=== PATIENT | female | born 1990 | race American Indian/Alaskan Native ===

== ENCOUNTER 2018-10-15 09:15 | Inpatient (IN) | payer MEDICAID ==
[2018-10-15] MEDS ORDERED: BRETHINE SUB-Q PRN (12:12)
[2018-10-15] MEDS ORDERED: MINERAL OIL PO PRN (12:12)
[2018-10-15] MEDS ORDERED: BRETHINE IVP PRN (12:12)
[2018-10-15] MEDS ORDERED: CERVIDIL VG ONE (12:12)
[2018-10-15] MEDS ORDERED: XYLOCAINE 2% INFILTRATI ONE (12:12)
[2018-10-15 12:47] LABS: Hematocrit 32.7 % (30.3-42.9); Hemoglobin 10.9 gm/dl (10.1-14.3); Mean Corpuscular HGB Conc 33 % (30-34); Mean Corpuscular Volume 80 fl (79-97); Platelet Count 244 K/mm3 (140-440); Red Blood Count 4.11 M/mm3 (3.65-5.03)
[2018-10-15] MEDS ORDERED: PITOCin/NS 30 UNIT/500ML 30 UNITS/500 ML BAG IV SCH (13:00)
[2018-10-15] MEDS ORDERED: PITOCin/NS 20 UNIT/1000ML DRIP 20 UNITS/1,000 ML BAG IV SCH (13:00)
--- NOTE | 2018-10-15 14:19 | History and Physical Report ---
History of Present Illness Date of examination: 10/15/18 Date of admission: 10/15/2018 Chief complaint: IOL secondary to CHTN History of present illness: 27 yo, @ 38.0 wks gestation. Initiated care with Thalia Flores at 11.1 wks gestation. Care has been co-managed by [facility]. has been complicated by Morbid obesity, CHTN, and BV/yeast. Reports good FM. Denies LOF or VB. Labs: O+, antibody negative; Rubella immune; VDRL non-reactive; HBsAG negative; HIV negative; Varicella immune; GC/Chlamydia/Trich negative; early 1 hr Gtt- 152, early 3 hr- normal; Hgb A1c-5.4; 24 hr urine- 122 (05/03/18); 28 wk 1 hr Gtt- 141, followed by normal 3 hr; GBS negative. Past History Past Medical History: hypertension, other (Fibroids; Vit D deficiency) Past Surgical History: other (Hernia repair; Cyst removal) PROJECT OFFICER History: other (+HRHPV) Family/Genetic History: hypertension Social history: , full code. denies: smoking, alcohol abuse, prescription drug abuse, IV drug use - Obstetrical History Expected Date of Delivery: 10/29/18 Actual Gestation: 38 Week(s) 0 Day(s) : 1 Para: 0 Hx # Term Pregnancies: 0 Number of Pregnancies: 0 Spontaneous Abortions: 0 Induced : 0 Number of Living Children: 0 Medications and Allergies Allergies Allergy/AdvReac Type Severity Reaction Status Date / Time No Known Allergies Allergy Unverified 10/15/18 10:38 Home Medications Medication Instructions Recorded Confirmed Last Taken Type Aspirin EC 81 mg PO DAILY 10/15/18 10/15/18 10/14/18 22:00 History Labetalol [Labetalol 100mg TAB] 100 mg PO BID 10/15/18 10/15/18 10/14/18 10:00 History No.137/Iron/Folic Acd 1 tab PO DAILY 10/15/18 10/15/18 10/14/18 11:00 History [[facility] Vitamins Tablet] Active Meds: Active Medications Ephedrine Sulfate (Ephedrine Sulfate) 10 mg IV Q2M PRN PRN Reason: Hypotension Fentanyl (Sublimaze) 100 mcg IV Q2H PRN PRN Reason: Labor Pain Oxytocin/Sodium Chloride (Pitocin/Ns 20 Unit/1000ml Drip) 20 units in 1,000 mls @ 125 mls/hr IV DIRECT MANJU Oxytocin/Sodium Chloride (Pitocin/Ns 30 Unit/500ml) 30 units in 500 mls @ 1 mls/hr IV TITR MANJU; Protocol Lactated Ringer's (Lactated Ringers) 1,000 mls @ 125 mls/hr IV DIRECT MANJU Mineral Oil (Mineral Oil) 30 ml PO QHS PRN PRN Reason: Constipation Terbutaline Sulfate (Brethine) 0.25 mg SUB-Q ONCE PRN PRN Reason: Hyperstimulation/Hypertonicity Terbutaline Sulfate (Brethine) 0.25 mg IVP ONCE PRN PRN Reason: Hyperstimulation/Hypertonicity Review of Systems All systems: negative - Vital Signs Vital signs: Vital Signs Pulse BP 92 H 136/80 10/15/18 09:53 10/15/18 09:53 Temp Pulse Resp BP Pulse Ox 97.9 F 84 18 110/57 10/15/18 11:54 10/15/18 11:54 10/15/18 11:54 10/15/18 11:54 - Physical Exam Breasts: Positive: deferred Cardiovascular: Regular rate Lungs: Positive: Normal air movement Abdomen: Positive: other (gravid) Genitourinary (Female): Positive: normal external genitalia Vagina: Positive: normal moisture Uterus: Positive: other (S=D) Extremities: Positive: normal Deep Tendon Reflex Grade: Normal +2 - Obstetrical FHR: category 1 Uterine Contraction Monitor Mode: External Cervical Dilatation: 0 Cervical Effacement Percentage: 50 station: -3 Uterine Contraction Pattern: Irregular Uterine Tone Measurement Phase: Resting Uterine Contraction Intensity: Mild Results Result Diagrams: 10/15/18 11:15 Abnormal lab results 10/15/18 Range/Units 11:15 WBC 12.8 H (4.5-11.0) K/mm3 MCH 27 L (28-32) pg All other labs normal. Assessment and Plan - Patient Problems (1) 38 weeks gestation of Current Visit: Yes Status: Acute (2) Encounter for induction of labor Current Visit: Yes Status: Acute Plan to address problem: Admit to L & D Cervidil x 12 hrs as tolerated Pain medications as desired Anticipate (3) Chronic hypertension Current Visit: Yes Status: Acute Plan to address problem: Monitor B/P q h Notify provider for B/P > 160/110 (4) BMI 36.0-36.9,adult Current Visit: Yes Status: Acute
[2018-10-16] MEDS: SUBLIMAZE IV PRN ×2 (04:07→21:38)
[2018-10-16] MEDS ORDERED: CERVIDIL VG PRN (08:30)
[2018-10-16] MEDS ORDERED: CYTOTEC VG PRN (10:35)
--- NOTE | 2018-10-16 14:47 | Progress Note ---
Assessment and Plan A: IUP @ 38 1/7 Weeks Category I Tracing CHTN P: Cytotec 25mcg intravaginally q 4 hours Subjective - Subjective Date of service: 10/16/18 Patient reports: movement normal Objective - Vital Signs Vital Signs: Vital Signs - 12hr 10/16/18 10/16/18 10/16/18 02:59 09:05 09:06 Temperature 98.1 F Pulse Rate 93 H 84 Respiratory 18 Rate Blood Pressure 110/65 122/71 10/16/18 10/16/18 13:03 13:05 Temperature 97.8 F Pulse Rate 92 H Respiratory 18 Rate Blood Pressure 141/78 - Exam Breasts: normal Cardiovascular: Regular rate Lungs: Clear to auscultation, Normal air movement Abdomen: Present: normal appearance, soft, normal bowel sounds FHR: category 1 Uterine Contraction Monitor Mode: External Cervical Dilatation: 0.5 Uterine Contraction Pattern: Irregular Uterine Tone Measurement Phase: Resting Uterine Contraction Intensity: Mild - Labs Labs: Abnormal Labs 10/15/18 11:15 WBC 12.8 H MCH 27 L Laboratory Results - last 24 hr 10/15/18 11:15 RPR Nonreactive
[2018-10-16] MEDS: LACTATED RINGERS 1,000 ML IV SCH (16:25)
--- NOTE | 2018-10-16 19:04 | Progress Note ---
Assessment and Plan A: IUP @ 38 1/7 Weeks Category I Tracing CHTN P: Cook's Cervical Ripening Balloon Placed Start Low-Dose Pitocin Subjective - Subjective Date of service: 10/16/18 Patient reports: movement normal Objective - Vital Signs Vital Signs: Vital Signs - 12hr 10/16/18 10/16/18 10/16/18 09:05 09:06 13:03 Temperature 98.1 F 97.8 F Pulse Rate 84 Respiratory 18 18 Rate Blood Pressure 122/71 O2 Sat by Pulse Oximetry 10/16/18 10/16/18 10/16/18 13:05 16:24 18:38 Temperature Pulse Rate 92 H 76 93 H Respiratory Rate Blood Pressure 141/78 112/73 O2 Sat by Pulse 99 Oximetry 10/16/18 10/16/18 10/16/18 18:43 18:48 18:53 Temperature Pulse Rate 93 H 99 H 94 H Respiratory Rate Blood Pressure O2 Sat by Pulse 98 99 99 Oximetry 10/16/18 10/16/18 18:58 18:59 Temperature Pulse Rate 85 87 Respiratory Rate Blood Pressure O2 Sat by Pulse 99 75 L Oximetry - Exam Breasts: normal Cardiovascular: Regular rate Lungs: Normal air movement Abdomen: Present: normal appearance, soft Uterus: Present: normal, firm, fundal height at umbilicus FHR: category 1 Uterine Contraction Monitor Mode: External Cervical Dilatation: 1 Cervical Effacement Percentage: 40 station: 3 Uterine Contraction Pattern: Irregular Uterine Tone Measurement Phase: Resting Uterine Contraction Intensity: Mild Extremities: normal - Labs Labs: Abnormal Labs 10/15/18 11:15 WBC 12.8 H MCH 27 L Laboratory Results - last 24 hr 10/15/18 11:15 RPR Nonreactive
[2018-10-17] MEDS ORDERED: NARCAN 2 MG/2 ML IV PRN (02:31)
--- NOTE | 2018-10-17 02:34 | Anesthesia Consultation ---
Anesthesia Consult and Med Hx Date of service: 10/17/18 - Airway Anesthetic Teeth Evaluation: Good ROM Head & Neck: Adequate Mental/Hyoid Distance: Adequate Mallampati Class: Class II Intubation Access Assessment: Probably Good - Pulmonary Exam CTA: Yes - Cardiac Exam Cardiac Exam: RRR - Pre-Operative Health Status ASA Pre-Surgery Classification: ASA2 Proposed Anesthetic Plan: Epidural - Pulmonary Hx Smoking: No Hx Asthma: No Hx Respiratory Symptoms: No SOB: No COPD: No Home Oxygen Therapy: No Hx Pneumonia: No Hx Sleep Apnea: No - Cardiovascular System Hx Hypertension: Yes (during this ) Hx Coronary Artery Disease: No Hx Heart Attack/AMI: No Hx Angina: No Hx Percutaneous Transluminal Coronary Angioplasty (PTCA): No Hx Cardia Arrhythmia: No Hx Pacemaker: No Hx Internal Defibrillator: No Hx Valvular Heart Disease: No Hx Heart Murmur: No Hx Peripheral Vascular Disease: No - Central Nervous System Hx Neuromuscular Disorder: No Hx Seizures: No CVA: No Hx Back Pain: No Hx Psychiatric Problems: No - Gastrointestinal Hx Ulcer: No Hx Gastroesophageal Reflux Disease: Yes - Endocrine Hx Renal Disease: No Hx End Stage Renal Disease: No Hx Cirrhosis: No Hx Liver Disease: No Hx Insulin Dependent Diabetes: No Hx Non-Insulin Dependent Diabetes: No Hx Thyroid Disease: No Hx Hypothyroidism: No Hx Hyperthyroidism: No - Hematic Hx Anemia: No Hx Sickle Cell Disease: No - Other Systems Hx Alcohol Use: Yes (none during ; social drinking) Hx Substance Use: No Hx Cancer: No Hx Obesity: No
[2018-10-17] MEDS: fentaNYL-BUPIV 2 MCG/ML-0.125% 200 MCG/100 ML BAG EPIDURAL SCH ×2 (03:29→12:25)
--- NOTE | 2018-10-17 09:44 | Progress Note ---
Assessment and Plan A: IUP @ 38 1/7 Weeks Category I Tracing TORITOTAlejandro Bennett's catheter remains in place Pitocin on 4mu Irregular contractions P: Continue Routine labor orders Increase Pitocin per protocol Anticipate Subjective - Subjective Date of service: 10/17/18 Principal diagnosis: IOL Patient reports: movement normal, contractions (occasional ), no loss of fluid, no vaginal bleeding Objective - Vital Signs Vital Signs: Vital Signs - 12hr 10/16/18 10/16/18 10/16/18 22:09 22:37 23:07 Temperature Pulse Rate 85 80 88 Respiratory Rate Blood Pressure 136/86 114/55 124/77 O2 Sat by Pulse Oximetry 10/16/18 10/16/18 10/16/18 23:25 23:30 23:35 Temperature Pulse Rate 90 92 H 94 H Respiratory Rate Blood Pressure O2 Sat by Pulse 99 97 98 Oximetry 10/16/18 10/16/18 10/16/18 23:38 23:40 23:45 Temperature Pulse Rate 90 90 94 H Respiratory Rate Blood Pressure 124/73 O2 Sat by Pulse 98 98 Oximetry 10/16/18 10/17/18 10/17/18 23:50 00:05 00:10 Temperature Pulse Rate 90 100 H 89 Respiratory Rate Blood Pressure O2 Sat by Pulse 98 98 97 Oximetry 10/17/18 10/17/18 10/17/18 00:15 00:20 00:25 Temperature Pulse Rate 88 94 H 102 H Respiratory Rate Blood Pressure O2 Sat by Pulse 97 97 97 Oximetry 10/17/18 10/17/18 10/17/18 00:30 00:35 00:39 Temperature Pulse Rate 92 H 96 H 95 H Respiratory Rate Blood Pressure O2 Sat by Pulse 97 98 92 Oximetry 10/17/18 10/17/18 10/17/18 00:41 00:46 00:51 Temperature Pulse Rate 87 82 83 Respiratory Rate Blood Pressure O2 Sat by Pulse 99 97 97 Oximetry 10/17/18 10/17/18 10/17/18 00:56 01:01 01:06 Temperature Pulse Rate 87 84 91 H Respiratory Rate Blood Pressure O2 Sat by Pulse 98 98 97 Oximetry 10/17/18 10/17/18 10/17/18 01:07 02:54 02:56 Temperature Pulse Rate 91 H 111 H 100 H Respiratory Rate Blood Pressure O2 Sat by Pulse 93 100 86 Oximetry 10/17/18 10/17/18 10/17/18 02:59 03:04 03:07 Temperature Pulse Rate 98 H 103 H 96 H Respiratory Rate Blood Pressure O2 Sat by Pulse 100 100 0 L Oximetry 10/17/18 10/17/18 10/17/18 03:09 03:10 03:14 Temperature Pulse Rate 107 H 88 Respiratory Rate Blood Pressure 122/74 O2 Sat by Pulse 73 L 99 Oximetry 10/17/18 10/17/18 10/17/18 03:21 03:26 03:31 Temperature Pulse Rate 91 H 92 H 65 Respiratory Rate Blood Pressure O2 Sat by Pulse 91 89 89 Oximetry 10/17/18 10/17/18 10/17/18 03:36 03:38 03:41 Temperature Pulse Rate 119 H 112 H 118 H Respiratory Rate Blood Pressure 119/73 O2 Sat by Pulse 99 99 Oximetry 10/17/18 10/17/18 10/17/18 03:46 03:48 03:51 Temperature Pulse Rate 121 H 98 H Respiratory 20 Rate Blood Pressure O2 Sat by Pulse 99 100 Oximetry 10/17/18 10/17/18 10/17/18 03:56 04:01 04:06 Temperature Pulse Rate 106 H 115 H 115 H Respiratory Rate Blood Pressure O2 Sat by Pulse 98 98 99 Oximetry 10/17/18 10/17/18 10/17/18 04:08 04:11 04:16 Temperature Pulse Rate 111 H 85 118 H Respiratory Rate Blood Pressure 134/70 O2 Sat by Pulse 96 98 Oximetry 10/17/18 10/17/18 10/17/18 04:21 04:23 04:26 Temperature Pulse Rate 114 H 84 114 H Respiratory Rate Blood Pressure O2 Sat by Pulse 99 93 99 Oximetry 10/17/18 10/17/18 10/17/18 04:31 04:36 04:39 Temperature Pulse Rate 115 H 98 H 99 H Respiratory Rate Blood Pressure 113/69 O2 Sat by Pulse 98 100 Oximetry 10/17/18 10/17/18 10/17/18 04:41 04:46 04:51 Temperature Pulse Rate 86 83 87 Respiratory Rate Blood Pressure O2 Sat by Pulse 99 98 99 Oximetry 10/17/18 10/17/18 10/17/18 04:56 05:01 05:06 Temperature Pulse Rate 88 95 H 82 Respiratory Rate Blood Pressure O2 Sat by Pulse 98 97 97 Oximetry 10/17/18 10/17/18 10/17/18 05:08 05:11 05:16 Temperature Pulse Rate 85 80 93 H Respiratory Rate Blood Pressure 101/56 O2 Sat by Pulse 97 97 Oximetry 10/17/18 10/17/18 10/17/18 05:21 05:26 05:31 Temperature Pulse Rate 85 81 85 Respiratory Rate Blood Pressure O2 Sat by Pulse 96 97 97 Oximetry 10/17/18 10/17/18 10/17/18 05:36 05:38 05:41 Temperature Pulse Rate 88 89 93 H Respiratory Rate Blood Pressure 98/57 O2 Sat by Pulse 97 98 Oximetry 10/17/18 10/17/18 10/17/18 05:46 05:51 05:56 Temperature Pulse Rate 80 102 H 98 H Respiratory Rate Blood Pressure O2 Sat by Pulse 98 98 98 Oximetry 10/17/18 10/17/18 10/17/18 06:01 06:06 06:11 Temperature Pulse Rate 113 H 90 92 H Respiratory Rate Blood Pressure O2 Sat by Pulse 100 98 98 Oximetry 10/17/18 10/17/18 10/17/18 06:16 06:21 06:26 Temperature Pulse Rate 85 98 H 91 H Respiratory Rate Blood Pressure O2 Sat by Pulse 99 98 99 Oximetry 10/17/18 10/17/18 10/17/18 06:31 06:36 06:41 Temperature Pulse Rate 94 H 97 H 95 H Respiratory Rate Blood Pressure O2 Sat by Pulse 98 98 98 Oximetry 10/17/18 10/17/18 10/17/18 06:46 06:51 06:56 Temperature Pulse Rate 100 H 102 H 102 H Respiratory Rate Blood Pressure O2 Sat by Pulse 98 98 97 Oximetry 10/17/18 10/17/18 10/17/18 07:01 07:06 07:08 Temperature Pulse Rate 111 H 110 H 104 H Respiratory Rate Blood Pressure O2 Sat by Pulse 98 98 94 Oximetry 10/17/18 10/17/18 10/17/18 07:11 07:15 07:16 Temperature 97.8 F Pulse Rate 108 H 107 H Respiratory Rate Blood Pressure O2 Sat by Pulse 97 97 Oximetry 10/17/18 10/17/18 10/17/18 07:21 07:23 07:26 Temperature Pulse Rate 116 H 112 H 108 H Respiratory Rate Blood Pressure 125/79 O2 Sat by Pulse 98 99 Oximetry 10/17/18 10/17/18 10/17/18 07:31 07:36 07:37 Temperature Pulse Rate 103 H 106 H 103 H Respiratory Rate Blood Pressure 143/74 O2 Sat by Pulse 100 100 Oximetry 10/17/18 10/17/18 10/17/18 07:41 07:46 07:51 Temperature Pulse Rate 105 H 105 H 103 H Respiratory Rate Blood Pressure O2 Sat by Pulse 98 98 98 Oximetry 10/17/18 10/17/18 10/17/18 07:56 08:01 08:06 Temperature Pulse Rate 103 H 125 H 105 H Respiratory Rate Blood Pressure O2 Sat by Pulse 98 98 100 Oximetry 10/17/18 10/17/18 10/17/18 08:08 08:11 08:16 Temperature Pulse Rate 116 H 106 H 122 H Respiratory Rate Blood Pressure 112/76 O2 Sat by Pulse 99 98 Oximetry 10/17/18 10/17/18 10/17/18 08:21 08:26 08:31 Temperature Pulse Rate 112 H 106 H 115 H Respiratory Rate Blood Pressure O2 Sat by Pulse 99 99 99 Oximetry 10/17/18 10/17/18 10/17/18 08:36 08:37 08:41 Temperature Pulse Rate 104 H 106 H 113 H Respiratory Rate Blood Pressure 108/72 O2 Sat by Pulse 99 100 Oximetry 10/17/18 10/17/18 10/17/18 08:46 08:51 08:56 Temperature Pulse Rate 111 H 101 H 116 H Respiratory Rate Blood Pressure O2 Sat by Pulse 99 99 100 Oximetry 10/17/18 10/17/18 10/17/18 09:01 09:06 09:11 Temperature Pulse Rate 105 H 108 H 110 H Respiratory Rate Blood Pressure O2 Sat by Pulse 100 99 99 Oximetry 10/17/18 10/17/18 10/17/18 09:16 09:21 09:26 Temperature Pulse Rate 122 H 125 H 114 H Respiratory Rate Blood Pressure 114/68 O2 Sat by Pulse 99 100 100 Oximetry 10/17/18 10/17/18 10/17/18 09:31 09:33 09:36 Temperature 98.7 F Pulse Rate 117 H 117 H Respiratory 18 Rate Blood Pressure O2 Sat by Pulse 99 99 Oximetry 10/17/18 10/17/18 09:38 09:41 Temperature Pulse Rate 109 H 107 H Respiratory Rate Blood Pressure 126/79 O2 Sat by Pulse 99 Oximetry - Exam Breasts: normal Cardiovascular: Regular rate, Normal S1, Normal S2, No murmurs Lungs: Clear to auscultation, Normal air movement Abdomen: Present: normal appearance, soft Vulva: both: normal Uterus: Present: other (Gravid) FHR: category 1 Uterine Contraction Monitor Mode: External Uterine Contraction Pattern: Regular Uterine Tone Measurement Phase: Resting Uterine Contraction Intensity: Mild Extremities: normal - Labs Labs: Abnormal Labs 10/15/18 11:15 WBC 12.8 H MCH 27 L Laboratory Results - last 24 hr 10/15/18 11:15 RPR Nonreactive
[2018-10-17] MEDS: LACTATED RINGERS 1,000 ML IV SCH (12:25)
[2018-10-17] MEDS ORDERED: XYLOCAINE 2% INFILTRATI ONE (19:59)
[2018-10-17] MEDS ORDERED: MILK OF MAGNESIA PO PRN (20:24)
[2018-10-17] MEDS ORDERED: TYLENOL PO PRN (20:24)
[2018-10-17] MEDS ORDERED: ZOFRAN IV PRN (20:24)
[2018-10-17] MEDS ORDERED: TUCKS PAD TP PRN (20:24)
[2018-10-17] MEDS ORDERED: LANSINOH TP PRN (20:24)
[2018-10-17] MEDS ORDERED: PHENERGAN PO PRN (20:24)
[2018-10-17] MEDS ORDERED: DULCOLAX PR PRN (20:24)
[2018-10-17] MEDS ORDERED: BENADRYL PO PRN (20:24)
--- NOTE | 2018-10-17 20:33 | Procedure Note ---
OB Delivery Note - Delivery Date of Delivery: 10/17/18 Surgeon: SHILPA PEARSON (ALEXEY) Estimated blood loss: 100cc - Vaginal Delivery presentation: vertex Delivery position: OA Intrapartum events: none Delivery induction: other (Cervidil, cook's catheter, pitocin) Delivery monitor: external FHT, external uterine Route of delivery: (19:48) Delivery placenta: spontaneous (19:55) Delivery cord: 3 umbilical vessels Episiotomy: none Delivery laceration: 1st degree Delivery repair: vicryl (CT-1) Anesthesia: epidural Delivery comments: viable female infant LEV position at 19:48. Vigorous infant placed [id number] on mothers abdomen. Delayed cord clamping then cut by FOB with my guidance. Cord blood collected per protocol. Spontaneous quinn delivery of intact, 3VC placenta. FF@U. 1st degree perineal laceration repaired under epidural and local anesthesia with 2-[address]-1. Pt tolerated well. EBL 100cc. Infant and mother left in stable condition i n L&D. - A at 1 minute: 8 at 5 minutes: 9 Gender: Female (2572 grams, 5lbs 14.2 oz, 18")
[2018-10-17] MEDS ORDERED: SODIUM CHLORIDE FLUSH SYRINGE 10 ML IV NR (21:00)
[2018-10-17] MEDS: IBUPROFEN PO SCH (23:11)
[2018-10-17] MEDS: NORCO 5/325 PO PRN (23:11)
[2018-10-18] MEDS: IBUPROFEN PO SCH ×4 (06:51→22:04)
[2018-10-18 08:57] LABS: Hematocrit 30.9 % (30.3-42.9); Hemoglobin 10.2 gm/dl (10.1-14.3)
--- NOTE | 2018-10-18 12:16 | Progress Note ---
Assessment and Plan - Patient Problems (1) Status post normal vaginal delivery Current Visit: Yes Status: Acute Plan to address problem: PPD 1 - stable Continue routine orders Anticipate discharge in 24-48 hours (2) Chronic hypertension Current Visit: Yes Status: Acute Plan to address problem: Last BP 142/77 Asymptomatic PIH labs ordered Subjective - Subjective Date of service: 10/18/18 Principal diagnosis: PPD #1; s/p Interval history: see H&P, OB Progress Notes and OB Delivery Procedure Note Patient reports: appetite normal, voiding normally, pain well controlled, ambulating normally, other (denies headache, visual disturbances or RUQ pain), no dizzy ambulation Objective - Vital Signs Latest vital signs: Vital Signs Temp Pulse Resp BP BP Pulse Ox 10/18/18 08:35 98.7 F 97 H 18 142/77 99 10/18/18 06:51 18 10/18/18 04:59 98.5 F 90 20 128/76 99 10/18/18 01:30 99.0 F 10/18/18 00:11 18 10/17/18 23:11 18 10/17/18 22:40 100.2 F H 105 H 18 129/77 10/17/18 21:03 184 H 157/88 10/17/18 20:48 206 H 149/87 10/17/18 20:34 110 H 154/88 10/17/18 20:15 123 H 129/61 10/17/18 20:09 131 H 154/133 10/17/18 19:59 131 H 147/63 10/17/18 19:54 131 H 135/58 10/17/18 19:49 142 H 135/60 10/17/18 18:20 99.2 F 24 10/17/18 16:07 125 H 136/91 10/17/18 15:52 99.9 F H 20 10/17/18 15:37 115 H 117/75 10/17/18 15:08 111 H 128/70 10/17/18 14:39 111 H 116/80 10/17/18 14:09 111 H 124/79 10/17/18 13:37 118 H 128/76 10/17/18 13:09 123 H 132/90 10/17/18 12:37 123 H 130/81 Intake and Output 10/17/18 10/18/18 10/18/18 23:59 07:59 15:59 Intake Total 270.4 Output Total 400 Balance -129.6 Intake: IV 30.4 PITOCin/NS 30 UNIT/500ML 30.4 30 units In 500 ml @ 1 MILLIUNITS/MIN 1 mls/hr IV TITR MANJU Rx#:[id number] Oral 240 Output: Urine 400 Void 400 Other: Total, Intake Amount 240 Total, Output Amount 400 # Voids Void 1 3 Estimated Blood Loss 100 - Exam Cardiovascular: Present: Regular rate Lungs: Present: Clear to auscultation, Normal air movement Abdomen: Present: normal appearance, soft Vulva: both: laceration/episiotomy (well approximated) Uterus: Present: normal, firm, fundal height at umbilicus Extremities: Present: normal Comments: small lochia
[2018-10-18 13:27] LABS: Hematocrit 31.3 % (30.3-42.9); Hemoglobin 10.5 gm/dl (10.1-14.3); Mean Corpuscular HGB Conc 34 % (30-34); Mean Corpuscular Volume 80 fl (79-97); Platelet Count 221 K/mm3 (140-440); Red Blood Count 3.89 M/mm3 (3.65-5.03); Red Cell Distribution Width 13.9 % (13.2-15.2)
[2018-10-18] MEDS: NORCO 5/325 PO PRN (18:02)
--- NOTE | 2018-10-18 23:03 | Event Note ---
Date: 10/18/18 Saw patient on account elevated WBC, Heart rate, low K+. Patient who is hours post was comfortable and happily chatting with her family. She denied any symptoms and had no complaints. Patient was told to bear with investigations into her clinical data which were for due diligence.
[2018-10-19] MEDS: IBUPROFEN PO SCH ×4 (04:53→20:03)
[2018-10-19 16:51] LABS: Hematocrit 30.2 % (30.3-42.9); Mean Corpuscular HGB Conc 33 % (30-34); Mean Corpuscular Volume 81 fl (79-97); Platelet Count 228 K/mm3 (140-440); Red Blood Count 3.74 M/mm3 (3.65-5.03); Red Cell Distribution Width 14.1 % (13.2-15.2)
[2018-10-19 17:38] LABS: Basophils % (Manual) 0 % (0.0-1.8); Total Cells Counted 100
[2018-10-19 17:39] LABS: Anisocytosis Few
--- NOTE | 2018-10-19 20:16 | Progress Note ---
Assessment and Plan A: day 2 S/P spontaneous vaginal delivery. Leukocytosis. Anemia secondary to and blood loss. P: Urinalysis and urine culture. Repeat CBC. Continue iron supplementation. Subjective - Subjective Date of service: 10/19/18 Principal diagnosis: day 2 S/P Interval history: day 2 S/P spontaneous vaginal delivery. Patient reports small amount of lochia. She is voiding without difficulty, passing gas, ambulating well, and tolerating a regular diet. Patient denies headache, chest pain, dizziness, cough, shortness of breath, sore throat, abdominal pain, leg pain, or any other symptoms. WBC elevated; repeat CBC ordered. Patient reports: appetite normal, voiding normally, pain well controlled, flatus, ambulating normally, no dizzy ambulation, no nauseated [place]: doing well Objective - Vital Signs Latest vital signs: Vital Signs Temp Pulse Resp BP Pulse Ox 10/19/18 20:03 18 10/19/18 16:58 98.0 F 86 18 120/86 100 10/19/18 07:20 98.7 F 83 20 122/72 99 10/19/18 07:17 18 10/19/18 06:18 18 10/19/18 04:53 18 10/18/18 23:42 98.3 F 77 20 135/83 96 10/18/18 23:04 18 10/18/18 22:04 18 Intake and Output 10/19/18 10/19/18 10/19/18 07:59 15:59 23:59 Intake Total 120 480 240 Balance 120 480 240 Intake: Oral 120 480 240 Other: Total, Intake Amount 120 360 240 # Voids Void 1 1 1 - Exam Cardiovascular: Present: Regular rate, Normal S1, Normal S2 Lungs: Present: Clear to auscultation Abdomen: Present: normal appearance, soft, normal bowel sounds. Absent: distention, tenderness, guarding, rigidity Uterus: Present: normal, firm, fundal height below umbilicus. Absent: bogginess Extremities: Present: normal. Absent: tenderness, edema - Labs Labs: Abnormal lab results 10/19/18 Range/Units 16:30 WBC 20.4 H (4.5-11.0) K/mm3 Hgb 10.0 L (10.1-14.3) gm/dl Hct 30.2 L (30.3-42.9) % MCH 27 L (28-32) pg Seg Neuts % (Manual) 87.0 H (40.0-70.0) % Lymphocytes % (Manual) 10.0 L (13.4-35.0) % Seg Neutrophils # Man 17.7 H (1.8-7.7) K/mm3
[2018-10-19] MEDS: FEOSOL PO SCH (21:36)
[2018-10-20] MEDS: IBUPROFEN PO SCH ×3 (06:08→17:50)
[2018-10-20] MEDS: FEOSOL PO SCH (10:12)
--- NOTE | 2018-10-20 16:04 | Progress Note ---
Assessment and Plan A: day 3 S/P spontaneous vaginal delivery. Leukocytosis. Anemia secondary to and blood loss. P: Repeat WBC. Get urine culture results to chart. Will consult with Dr. Suazo re: this patient and timing of discharge to home. Subjective - Subjective Date of service: 10/20/18 Principal diagnosis: day 3 S/P ; leukocytosis Interval history: day 3 S/P spontaneous vaginal delivery. Leukocytosis. Patient reports small amount of lochia. She is voiding without difficulty, passing gas, ambulating well, and tolerating a regular diet. Patient denies fever or chills, malaise, headache, chest pain, dizziness, cough, shortness of breath, sore throat, abdominal pain, leg pain, or any other symptoms. WBC elevated; repeat CBC ordered. Urine culture pending. Patient denies urinary symptoms. Patient reports: appetite normal, voiding normally, pain well controlled, flatus, ambulating normally, no dizzy ambulation, no nauseated [place]: doing well Objective - Vital Signs Latest vital signs: Vital Signs Temp Pulse Resp BP BP Pulse Ox 10/20/18 15:55 98.6 F 68 20 117/76 100 10/20/18 09:03 98.1 F 80 18 138/88 98 10/20/18 07:08 18 10/20/18 06:08 18 10/20/18 01:46 97.2 F L 67 20 126/76 99 10/19/18 21:03 18 10/19/18 20:03 18 10/19/18 16:58 98.0 F 86 18 120/86 100 Intake and Output 10/20/18 10/20/18 10/20/18 07:59 15:59 23:59 Intake Total 240 Balance 240 Intake: Oral 240 Other: Total, Intake Amount 240 # Voids Void 1 - Exam Cardiovascular: Present: Regular rate, Normal S1, Normal S2, No murmurs Lungs: Present: Clear to auscultation Abdomen: Present: normal appearance, soft. Absent: distention, tenderness, guarding, rigidity Uterus: Present: normal, firm, fundal height below umbilicus. Absent: bogginess, tenderness Extremities: Present: normal. Absent: tenderness, edema - Labs Labs: Abnormal lab results 10/19/18 Range/Units 16:30 WBC 20.4 H (4.5-11.0) K/mm3 Hgb 10.0 L (10.1-14.3) gm/dl Hct 30.2 L (30.3-42.9) % MCH 27 L (28-32) pg Seg Neuts % (Manual) 87.0 H (40.0-70.0) % Lymphocytes % (Manual) 10.0 L (13.4-35.0) % Seg Neutrophils # Man 17.7 H (1.8-7.7) K/mm3
[2018-10-20 16:52] LABS: Basophils # (Auto) 0.1 K/mm3 (0.0-0.1); Basophils % (Auto) 0.5 % (0.0-1.8); Eosinophils # (Auto) 0.1 K/mm3 (0.0-0.4); Eosinophils % (Auto) 0.9 % (0.0-4.3); Hematocrit 29.6 % (30.3-42.9); Lymphocytes # (Auto) 2.3 K/mm3 (1.2-5.4); Mean Corpuscular HGB Conc 34 % (30-34); Mean Corpuscular Volume 80 fl (79-97); Monocytes # (Auto) 0.7 K/mm3 (0.0-0.8); Monocytes % (Auto) 5.3 % (0.0-7.3); Platelet Count 246 K/mm3 (140-440); Red Cell Distribution Width 13.7 % (13.2-15.2)
--- NOTE | 2018-10-20 21:49 | Discharge Summary ---
Providers - Providers Date of Admission: 10/15/18 09:30 Date of discharge: 10/20/18 Attending physician: Brando Louie MD None Primary care physician: CINTIA LUO MD Hospitalization Reason for admission: induction of labor Delivery: Episiotomy: none Laceration: 1st degree Other procedures: none complications: none Discharge diagnosis: IUP at term delivered baby: female Condition at discharge: Good Disposition: DC-01 TO HOME OR SELFCARE - Discharge Diagnoses (1) Term delivered Status: Acute (2) Anemia Status: Acute Plan - Provider Discharge Summary Activity: routine, no sex for 6 weeks, no heavy lifting 4 weeks, no strenuous exercise Diet: routine Instructions: routine Additional instructions: Patient refused to wait on her urine culture or urinalysis results. Patient states she will call me for results when they are available. Patient insists on discharge this evening. Discussed with patient need to follow up at [facility]. Warning signs discussed. * Fever > 100.5 * Heavy vaginal bleeding ( >1 pad per hour) * Severe persistent headache * Shortness of breath * Reddened, hot, painful area to leg or breast - Follow up plan Follow up: BRANDO LOUIE MD [Staff Physician] - 7 Days Forms: [facility] Discharge Summary
[2018-10-20 22:09] VITALS: BP 124/67
== END 2018-10-20 22:30 | disposition home or self-care (01) | DRG 774 ==
LOC: TRG 09:15 → LD 09:16 → TRG 18:38 → OB 10-17 22:37
PROVIDERS: ADMIT Obstetrics & Gynecology; ATTEND Obstetrics & Gynecology
PROC: 10E0XZZ Delivery of Products of Conception, External Approach (ICD-10-PCS; principal; 2018-10-17)
PROC: 0HQ9XZZ Repair Perineum Skin, External Approach (ICD-10-PCS; 2018-10-17)
PROC: 3E0P7VZ Introduction of Hormone into Female Reproductive, Via Natural or Artificial Opening (ICD-10-PCS; 2018-10-17)
PROC: 3E0R3BZ Introduction of Anesthetic Agent into Spinal Canal, Percutaneous Approach (ICD-10-PCS; 2018-10-17)
PROC: 00HU33Z Insertion of Infusion Device into Spinal Canal, Percutaneous Approach (ICD-10-PCS; 2018-10-17)
DX: O13.4 Gestational [pregnancy-induced] hypertension without significant proteinuria, complicating childbirth (principal); O99.62 Diseases of the digestive system complicating childbirth; K21.9 Gastro-esophageal reflux disease without esophagitis; O99.314 Alcohol use complicating childbirth; O99.02 Anemia complicating childbirth; D64.9 Anemia, unspecified; O75.89 Other specified complications of labor and delivery; D72.829 Elevated white blood cell count, unspecified; O99.214 Obesity complicating childbirth; E66.01 Morbid (severe) obesity due to excess calories; O70.0 First degree perineal laceration during delivery; Z72.89 Other problems related to lifestyle; Z37.0 Single live birth; Z3A.38 38 weeks gestation of pregnancy; Z82.49 Family history of ischemic heart disease and other diseases of the circulatory system; Z79.82 Long term (current) use of aspirin; Z79.899 Other long term (current) drug therapy
CPT/HCPCS: 36415; 59200; 83615; 84450; 84460; 84550; 85007; 85014; 85018; 85025; 85027; 86592; 86850; 86900; 86901; 87086; G0378; A6250; J2590; J3010; J7120